=== PATIENT | female | born 1960 | race Caucasian/White ===

== ENCOUNTER 2016-11-15 08:55 | Outpatient (CLI) ==
[2016-11-15] MEDS ORDERED: ALBUTEROL 0.083% NEB NEB STA (09:17)
== END 2016-11-15 08:56 | disposition home or self-care (01) ==
LOC: CAR 08:55
PROVIDERS: ATTEND Family Medicine
DX: G47.10 Hypersomnia, unspecified (principal)

== ENCOUNTER 2017-01-11 07:42 | Emergency (ER) ==
[2017-01-11 07:49] VITALS: BP 160/91; TEMP 97.6; BMI 32.3
--- NOTE | 2017-01-11 08:12 | ED.PDOC ---
General ED Provider: Dr. RENETTA RAMOS Chief Complaint: Foot Pain/Injury Stated Complaint: right foot and ankle pain Time Seen by Physician: 08:00 (seen with staff) Mode of Arrival: Walk-In Information Source: Patient Exam Limitations: No limitations Primary Care Provider: JERRY MOHR Nursing and Triage Documentation Reviewed and Agree: Yes (rolled anjkle and foot 1 day ago) Musculoskeletal Complaint Exam - Ankle/Foot Complaint/Exam Location of Injury: Reports: Right, Ankle, Foot Mechanism of Injury: Reports: Trauma (inversion while walking a dog) Onset/Duration: 1 day Symptoms Are: Reports: Still present (gait limited due to paon) Onset of Pain: Reports: Immediate (felt a pop and subsequent pain ) Initial Severity: Moderate Current Severity: Moderate Location: Reports: Discrete (right lateral heel) Character: Reports: Aching Alleviating: Reports: Rest, Position Aggravating: Reports: Movement, Weight bearing, Prolonged standing Able to Bear Weight: Yes (walking since on it) Associated Signs and Symptoms: Reports: Swelling. Denies: Redness, Bruising, Fever, Weakness, Numbness, Tingling Gout Risk Factors: Reports: >40 years old Lower Extremity Findings: Present: Swelling, Limited range of motion. Absent: Other joint pain, Foreign body Achilles Tendon Abnormality: No Limited Range of Motion: Present: Inversion Differential Diagnosis: Closed Fracture Review of Systems - Review Of Systems Constitutional: Reports: No symptoms Eyes: Reports: No symptoms Ears, Nose, Mouth, Throat: Reports: No symptoms Respiratory: Reports: No symptoms Cardiac: Reports: No symptoms GI: Reports: No symptoms : Reports: No symptoms Musculoskeletal: Reports: Joint pain (right foot and ankle) Skin: Reports: No symptoms Neurological: Reports: No symptoms Endocrine: Reports: No symptoms Hematologic/Lymphatic: Reports: No symptoms All Other Systems: Reviewed and Negative Past Medical History - Past Medical History Previously Healthy: Yes Endocrine: Reports: Hypothyroid, Dyslipidemia Cardiovascular: Reports: None Respiratory: Reports: None Hematological: Reports: None Gastrointestinal: Reports: None Genitourinary: Reports: None Neuro/Psych: Reports: None Musculoskeletal: Reports: None Cancer: Reports: None Last Menstrual Period: unknown - Surgical History General Surgical History: Reports: None - Family History Family History: Reports: None - Social History Smoking Status: Never smoker Hx Substance Use: No Alcohol Screening: None Physical Exam - Physical Exam Appearance: Well-appearing, No pain distress, Well-nourished Eyes: [place], EOMI, Conjunctiva clear ENT: Ears normal, Nose normal, Oropharynx normal Respiratory: Airway patent, Breath sounds clear, Breath sounds equal, Respirations nonlabored Cardiovascular: RRR, Pulses normal, No rub, No murmur GI/: Soft, Nontender, No masses, Bowel sounds normal, No Organomegaly Musculoskeletal: Normal strength, No edema, No calf tenderness, Limited ROM ( right foot and ankle ) Skin: Warm, Dry, Normal color Neurological: Sensation intact, Motor intact, Reflexes intact, Cranial nerves intact, Alert, Oriented Psychiatric: Affect appropriate, Mood appropriate Critical Care Note - Critical Care Note Total Time (mins): 0 Course - Course Orders, Labs, Meds: Orders Category Date Time Status ANKLE, RIGHT MIN 3 VIEWS Stat RADS 01/11/17 07:59 Ordered FOOT, RIGHT 3 VIEWS Stat RADS 01/11/17 07:59 Ordered Vital Signs: Temp Pulse Resp BP Pulse Ox 01/11/17 07:43 97.6 F 90 20 160/91 H 97 Departure - Departure Time of Disposition: 08:14 Disposition: HOME SELF-CARE Discharge Problem: Right foot sprain Qualifiers: Encounter type: initial encounter Qualified Code(s): S93.601A - Unspecified sprain of right foot, initial encounter Instructions: Foot Sprain (ED) Condition: Good Pt referred to PMD for follow-up: Yes Additional Instructions: Please call your Family Physician as soon as possible to schedule a follow-up appointment.please use crutches and if pain not better in a few days you may have a ligament injury which would be noted on a MRI scan Prescriptions: Hydrocodone/Acetaminophen [[place] 10-325 Tablet] 1 each PO Q8HR #20 tablet Allergies/Adverse Reactions: Allergies Penicillins Adverse Reaction (Verified 01/11/17 07:49) Home Medications: Ambulatory Orders Atorvastatin Calcium [Lipitor] 40 mg PO DAILY PRN 01/15/15 Citalopram Hydrobromide [Celexa] 40 mg PO DAILY 01/15/15 Estradiol/Norethindrone Acet [Activella 1 mg-0.5 mg Tablet] 1 tab PO DAILY 01/15 Furosemide 20 mg PO DAILY PRN 01/15/15 Levothyroxine Sodium [Synthroid] 75 mcg PO DAILY 01/15/15 Metformin HCl [Glucophage Xr] 1,000 mg PO BEDTIME 01/15/15 Potassium Chloride [Micro-K Cap] 10 meq PO DAILY 01/15/15 Hydrocodone/Acetaminophen [[place] 10-325 Tablet] 1 each PO Q8HR #20 tablet
--- NOTE | 2017-01-11 08:27 | DI ---
EXAM: RIGHT ANKLE THREE VIEWS HISTORY: Ankle trauma, pain. FINDINGS: Bone and joint structures appear normal. No fracture or joint dislocation. There is no joint effusion. Bone density is unremarkable. IMPRESSION: No definite fracture is identified.
--- NOTE | 2017-01-11 08:28 | DI ---
Exam: Three x-rays of the right foot. Comparison: None available. Reason for exam: Trauma. FINDINGS: No acute fracture or dislocation. The joint spaces are well maintained. No unexplained c alcific soft tissue density or radiopaque retained foreign body. Degenerative disease is seen with c alcaneal spurring. Impression: No acute fracture or malalignment of the right foot
== END 2017-01-11 08:45 | disposition home or self-care (01) ==
LOC: ED 07:42
DX: S93.601A Unspecified sprain of right foot, initial encounter (principal); X50.1XXA Overexertion from prolonged static or awkward postures, initial encounter
CPT/HCPCS: 99283

== ENCOUNTER 2017-05-22 08:55 | Outpatient (CLI) ==
--- NOTE | 2017-05-23 09:32 | MAMMO ---
EXAM: Digital screening mammogram with tomosynthesis and CAD HISTORY: Screening mammogram COMPARISON: Mammogram 04/15/2015 and 05/09/2011 FINDINGS: Bilateral CC and MLO views of the breasts were performed digitally and demonstrate scatter ed fibroglandular breast density. Bilateral benign-appearing calcifications are present. There is no abnormal nodule or calcification. There is no significant interval change. IMPRESSION: No new or suspicious nodule or calcification RECOMMENDATION: Annual screening mammogram BIRADS category II: Benign findings
== END 2017-05-22 08:56 | disposition home or self-care (01) ==
LOC: RAD 08:55
PROVIDERS: ATTEND Family Medicine
DX: Z12.31 Encounter for screening mammogram for malignant neoplasm of breast (principal)
CPT/HCPCS: 77067

== ENCOUNTER 2017-07-16 09:42 | Day surgery (SDC) ==
[2017-07-16] MEDS ORDERED: LIDOCAINE 1% 20 ML MDV ID STA (10:33)
[2017-07-16] MEDS ORDERED: DIPRIVAN 20 ML VIAL IVP ONE (10:40)
[2017-07-16] MEDS ORDERED: VERSED ONE (10:40)
[2017-07-16 14:57] VITALS: BP 116/67; TEMP 98
--- NOTE | 2017-07-17 10:50 | OP ---
PROCEDURE: COLONOSCOPY TO THE CECUM WITH SNARE POLYPECTOMY. ENDOSCOPIST: Huang MUNOZ M.D. INDICATION: HISTORY OF POLYPS. INSTRUMENT: PCWave Broadband-190. MEDICATION: PER ANESTHESIA. PROCEDURE: The patient was positioned for colonoscopy. The digital rectal exam was negative. The colonoscope was inserted through the anus and advanced to the cecum. The cecum was identified using the ileocecal valve and the appendiceal orifice as landmarks. The scope was slowly withdrawn through an adequately prepped colon. [place] Bowel Prep Score = 9. A small polyp at 20 cm removed using snare cautery. The retroflex exam was otherwise normal. Diverticulosis of the left colon. The patient tolerated the procedure well without immediate complication. Withdrawal time 8 minutes and 3 seconds. PLAN: 1. Suggest repeat colonoscopy in 5 years. CC: DR. ONUR BRANNON
== END 2017-07-16 11:30 | disposition home or self-care (01) ==
LOC: SURG 09:42
PROVIDERS: ATTEND Internal Medicine Gastroenterology
DX: Z09 Encounter for follow-up examination after completed treatment for conditions other than malignant neoplasm (principal); Z86.010 Personal history of colon polyps; K63.5 Polyp of colon; K57.30 Diverticulosis of large intestine without perforation or abscess without bleeding

== ENCOUNTER → 2017-11-22 | Outpatient (REF) | LOC: LAB 11:32 | DX: Z02.89 Encounter for other administrative examinations (principal) | CPT/HCPCS: 36415; 80053; 80061; 83036; 83540; 84100; 84550; 85025; 86140 ==

== ENCOUNTER 2018-12-31 11:00 | Outpatient (CLI) ==
--- NOTE | 2019-01-01 11:30 | MAMMO ---
EXAM: Bilateral digital screening mammogram (2-D and 3-D) History: Screening Comparison: Bilateral mammogram 05/22/2017 Findings: MLO and CC views of bilateral breasts demonstrate scattered fibroglandular breast parenchy ma. CAD was reviewed by the radiologist. Tomosynthesis was performed. Stable benign bilateral k[address] st calcifications. There are no dominant masses, no suspicious microcalcifications and no architectu ral distortions Impression: Benign stable mammogram. Recommend followup routine screening mammography in 1 year. BI-RADS 2, benign
== END 2018-12-31 11:01 | disposition home or self-care (01) ==
LOC: RAD 11:00
PROVIDERS: ATTEND Family Medicine
DX: Z12.31 Encounter for screening mammogram for malignant neoplasm of breast (principal)